=== PATIENT | male | born 1960 | race Caucasian/White ===

== ENCOUNTER 2017-03-18 21:56 | Emergency (ER) | payer BC ==
[~2017-03-18 21:56] MED LIST: ALBUTEROL INH 0.3 ML AERO NEB; ATENOLOL; ATENOLOL50 MG PO; ATIVAN0.5 M1 PO; AUGMENTIN 875-11 TAB PO; AVELOX400 MG PO; CHLORASEPTIC LO1 LOZ PO; CHLORASEPTIC T180 ML MM; COREG12.5 M1 PO; CRESTOR10 MG PO; CRESTOR5 MG; CUBICIN500 MG/10 IV; CULTURELLE1 CA1 PO; DEEP SEA45 M1 NS; DEEP SEA45 ML NS; DELTASONE50 MG PO; DUONEB 2.5-0.5 M3 ML IH; DUONEB 2.5-0.5MG3 M1 AERO NEB; FLONASE ALLERG9.9 ML; FLONASE16 G1; FLONASE16 GM NS; GLIPIZIDE ER10 M1 PO; GLIPIZIDE XL10 M1 PO; IMBRUVICA140 M1 PO; IMBRUVICA140 MG PO; JANUVIA100 M1 PO; KEFLEX500 MG PO; LEVAQUIN500 MG PO; LEVAQUIN750 M1 PO; LEVAQUIN750 MG PO; LIPITOR10 MG PO; LOTREL 5/20 MG1 CAP PO; LOTREL 5/201 CAP PO; LOTREL 5/40 MG1 CAP; MAGIC MOUTHWASH PO; MAXZIDE 37.5 M1 EAC1 PO; MUCOMYST 20% INH4 ML INH; NORCO 5-325 TA1 EACH PO; NORCO 5/325 TAB1 TAB PO; NOREL SR T1 TAB.SR . PO; PLAVIX75 MG; PLAVIX75 MG PO; PREDNISONE10 MG PO; PROVENTIL HFA6.7 G1 IH; PROVENTIL HFA6.7 G1 INH; ROBITUSSIN-AC5 ML GT; ROBITUSSIN-AC5 ML PO; SYMBICORT 80-41 PUFF INH; SYMBICORT 80-46.9 GM IH; TAMIFLU75 MG PO; TENORMIN50 MG PO; TYLENOL325 M2 PO; TYLENOL325 MG PO; TYLENOL500 MG PO; VENTOLIN HFA18 GM INH; VITAMIN D 22000 UNIT PO; VITAMIN D32000 UNI2 PO; VITAMIN D32000 UNI3 PO; VITAMIN D35000 UNI3 PO; XANAX0.25 M1 PO; ZETIA10 M1 PO; ZITHROMAX250MG Z-PAK PO; ZOCOR40 MG
[2017-03-18 22:52] LABS: BASO % 0.3 % (0-2); EOS % 1.2 % (0-7); EOSINOPHIL ABSOLUTE COUNT 0.1 tho/cmm (0.0-0.7); HCT-HEMATOCRIT 37.9 % (36.0-53.5); HGB-HEMOGLOBIN 13.5 gm/dl (13.5-17.0); IMMATURE GRANULOCYTES ABSOLUTE 0.01 tho/cmm (0-0.03); IMMATURE GRANULOCYTES PERCENT 0.2 % (0-0.3); INR 1.1 INR (0.9-1.1); LYMPH % 36.6 % (20-45); LYMPH ABSOLUTE COUNT 2.4 tho/cmm (0.8-4.5); MCH (MEAN CORPUSCULAR HGB) 29.2 pg (28.0-32.0); MCHC MEAN CORPUSCULAR HGB CONC 35.6 % (32.0-36.0); MCV (MEAN CELL VOLUME) 81.9 fl (82.0-96.0); MEAN PLATELET VOLUME 9.4 cmc (9.4-12.4); MONO % 11.3 % (0-12); MONOCYTE ABSOLUTE COUNT 0.7 tho/cmm (0.0-1.2); NEUTROPHIL ABSOLUTE COUNT 3.3 tho/cmm (1.6-8.0); NEUTROPHIL-AUTOMATED 3.3 tho/cmm (1.6-8.0); NEUTROPHILS % 50.4 % (40-80); PLATELET COUNT 108 tho/cmm (150-450); PROTHROMBIN TIME 12.9 SECONDS (9.0-13.6); RED BLOOD COUNT 4.63 mil/cmm (4.40-5.70); RED CELL DISTRIBUTION WIDTH 13.3 % (12.4-16.4); WHITE BLOOD COUNT 6.5 tho/cmm (4.0-10.0)
[2017-03-18 23:05] LABS: ALB/GLOB RATIO 1.7 (0.8-2.0); ALBUMIN 4.1 g/dl (3.5-5.0); ALKALINE PHOSPHATASE 65 U/L (33-138); ALT/SGPT 45 U/L (12-78); BILIRUBIN,TOTAL 0.6 mg/dl (0.0-1.5); BLOOD UREA NITROGEN 24 mg/dl (6-24); CALCIUM 8.6 mg/dl (8.5-10.5); CARBON DIOXIDE-VENOUS 23 mmol/L (22-32); CHLORIDE 107 mmol/l (96-110); CREATININE 1.46 mg/dl (0.60-1.30); GLUCOSE 195 mg/dL (70-110); SODIUM 142 mmol/L (135-145); eGFR VALUE FOR BLACK 61 mL/Min
[2017-03-18 23:06] LABS: ANION GAP 16 mmol/L (0-20); AST/SGOT 30 U/L (10-40); POTASSIUM 3.8 mmol/L (3.7-5.1)
[2017-03-18] MEDS ORDERED: CLEOCIN HCL300 M1 PO (23:33)
[2017-03-18] MEDS ORDERED: NORCO 5/3251 TAB PO (23:47)
== END 2017-03-19 00:35 ==
LOC: EDMED 21:56
PROVIDERS: Emergency Medicine
DX: L03.116 Cellulitis of left lower limb (principal); L03.115 Cellulitis of right lower limb; I48.91 Unspecified atrial fibrillation; I10 Essential (primary) hypertension; E11.9 Type 2 diabetes mellitus without complications; J44.9 Chronic obstructive pulmonary disease, unspecified; C91.10 Chronic lymphocytic leukemia of B-cell type not having achieved remission; F41.9 Anxiety disorder, unspecified; Z86.718 Personal history of other venous thrombosis and embolism; Z87.891 Personal history of nicotine dependence; Z79.51 Long term (current) use of inhaled steroids; Z79.899 Other long term (current) drug therapy
CPT/HCPCS: J2270; J3370; J7030